=== PATIENT | female | born 1990 | race African-American/Black ===

== ENCOUNTER 2018-04-20 19:12 | Emergency (ER) | payer OTHER ==
[~2018-04-20] VITALS: Ht 170.2 cm; Wt 90.0 kg
[2018-04-20 20:11] VITALS: BP 129/85; PULSE 84; RESP 16; TEMP 98.6; O2SAT 100
[2018-04-20] MEDS ORDERED: METOCLOPRAMIDE HCL 10 MG/2 ML VIAL IV PUSH ONE (21:30)
[2018-04-20] MEDS ORDERED: diphenhydrAMINE HCL 50 MG/ML VIAL IV PUSH ONE (21:30)
[2018-04-20] MEDS ORDERED: SODIUM CHLOR 0.9% 1000 ML INJ 1,000 ML IV ONE (21:30)
[2018-04-20] MEDS ORDERED: KETOROLAC TROMETHAMINE 30 MG/ML (IVP) VIAL IV PUSH ONE (21:30)
--- NOTE | 2018-04-20 21:35 | PD ---
HPI Chief Complaint: Abdominal Pain Time Seen by Provider: 21:19 Travel History International Travel<30 days: No Contact w/Intl Traveler<30days: No Traveled to known affect area: No History of Present Illness HPI 27-year-old black female 2 months presents emergency department we will complains of abdominal pain and associated nausea. She states that the pain came on this morning sometime after 2 AM. She states the pain seems to be localized more in the right upper quadrant but also has some pain in the right lower quadrant. She states the pain is sharp and cramping in nature. States the pain is moderate to severe at times. She states that she has associated nausea but no vomiting. No fever chills. No cough or congestion. No urinary symptoms. No vaginal discharge or abnormal bleeding. She states that she has not had a period since her delivery. Symptoms are exacerbated by movement. She has some improvement with standing and not moving. PFSH Past Medical History Medical History: Denies Significant Hx Tetanus Vaccination: < 5 Years Influenza Vaccination: No ?: Unknown LMP: "JUST HAD A BABY IN JANUARY" : 2 Para: 1 : 1 Past Surgical History Gynecologic Surgery: Yes (CERVIX) Social History Alcohol Use: Yes Tobacco Use: No Substance Use: No Allergies-Medications (Allergen,Severity, Reaction): Coded Allergies: No Known Allergies (Unverified , 04/20/18) Reported Meds & Prescriptions Reported Meds & Active Scripts Active [place] (Hydrocodone-Acetaminophen) 5 Mg-325 Mg Tab 1 Tab PO Q4H PRN Zofran Odt (Ondansetron Odt) 4 Mg Tab 4 Mg SL Q6HR PRN Keflex (Cephalexin) 500 Mg Cap 500 Mg PO Q12H 7 Days Review of Systems General / Constitutional: No: Fever Eyes: No: Visual changes HENT: No: Headaches Cardiovascular: No: Chest Pain or Discomfort Respiratory: No: Shortness of Breath Gastrointestinal: Positive: Nausea, Abdominal Pain, No: Vomiting Genitourinary: No: Dysuria, Hematuria Musculoskeletal: No: Pain Skin: No Rash Neurologic: No: Weakness Psychiatric: No: Depression Endocrine: No: Polydipsia Hematologic/Lymphatic: No: Easy Bruising Physical Exam Narrative GENERAL: Well-developed, well-nourished in no apparent distress. Nontoxic appearing. HEAD: Normocephalic, atraumatic. EYES: Pupils equal round and reactive. Extraocular motions intact. No scleral icterus. No injection or drainage. ENT: Nose clear. Throat without erythema, tonsillar hypertrophy or exudate. Uvula midline. Airway patent. NECK: Trachea midline. Supple, nontender, moves head freely. No central bony tenderness or spasm. CARDIOVASCULAR: Regular rate and rhythm without murmurs, gallops, or rubs. RESPIRATORY: Clear to auscultation. Breath sounds equal bilaterally. No wheezes , rales, or rhonchi. GASTROINTESTINAL: Abdomen soft, tender right upper quadrant to deep palpation with positive Tapia sign. She also has some mild right lower quadrant discomfort to deep palpation, nondistended. No hepato-splenomegaly, or palpable masses. No CVA tenderness. EXTREMITIES: No clubbing, cyanosis, or edema. No joint tenderness. BACK: Nontender without deformity. No flank tenderness. NEUROLOGICAL: Awake, alert and oriented x 3 .Cranial nerves grossly intact. Motor and sensory grossly within normal limits. Normal speech. Data Data Last Documented VS Vital Signs Date Time Temp Pulse Resp B/P (MAP) Pulse Ox O2 Delivery O2 Flow Rate FiO2 04/20/18 21:52 20 04/20/18 20:11 98.6 84 129/85 (100) 100 Orders Orders Complete Blood Count With Diff (04/20/18 21:30) Comprehensive Metabolic Panel (04/20/18 21:30) Lipase (04/20/18 21:30) Urinalysis - C+S If Indicated (04/20/18 21:30) Iv Access Insert/Monitor (04/20/18 21:30) Ed Urine Pregnancytest Poc (04/20/18 21:30) Sodium Chlor 0.9% 1000 Ml Inj (Ns 1000 M (04/20/18 21:30) Diphenhydramine Inj (Benadryl Inj) (04/20/18 21:30) Metoclopramide Inj (Reglan Inj) (04/20/18 21:30) Ketorolac Inj (Toradol Inj) (04/20/18 21:30) Us Abdomen Gallbladder (04/20/18 21:30) Urine Culture (04/20/18 21:31) Ceftriaxone Inj (Rocephin Inj) (04/21/18 00:00) Ct Abd/Pel W Iv Contrast(Rout) (04/21/18 23:48) Iohexol 350 Inj (Omnipaque 350 Inj) (04/21/18 00:46) Ed Discharge Order (04/21/18 01:22) Labs Laboratory Tests Test 04/20/18 21:31 04/20/18 21:35 Urine Color YELLOW Urine Turbidity HAZY Urine pH 6.0 Urine Specific [place] 1.020 Urine Protein NEG mg/dL Urine Glucose (UA) NEG mg/dL Urine Ketones NEG mg/dL Urine Occult Blood NEG Urine Nitrite NEG Urine Bilirubin NEG Urine Urobilinogen 2.0 mg/dL Urine Leukocyte Esterase SMALL Urine RBC 1 /hpf Urine WBC 18 /hpf Urine Squamous Epithelial Cells 5 /hpf Urine Bacteria OCC /hpf Urine Mucus FEW /lpf Microscopic Urinalysis Comment CULTURE INDICATED White Blood Count 12.1 TH/MM3 Red Blood Count 4.14 MIL/MM3 Hemoglobin 12.1 GM/DL Hematocrit 36.8 % Mean Corpuscular Volume 88.8 FL Mean Corpuscular Hemoglobin 29.2 PG Mean Corpuscular Hemoglobin Concent 32.8 % Red Cell Distribution Width 12.3 % Platelet Count 237 TH/MM3 Mean Platelet Volume 9.8 FL Neutrophils (%) (Auto) 78.2 % Lymphocytes (%) (Auto) 11.0 % Monocytes (%) (Auto) 9.5 % Eosinophils (%) (Auto) 0.9 % Basophils (%) (Auto) 0.4 % Neutrophils # (Auto) 9.5 TH/MM3 Lymphocytes # (Auto) 1.3 TH/MM3 Monocytes # (Auto) 1.1 TH/MM3 Eosinophils # (Auto) 0.1 TH/MM3 Basophils # (Auto) 0.1 TH/MM3 CBC Comment DIFF FINAL Differential Comment Blood Urea Nitrogen 11 MG/DL Creatinine 1.18 MG/DL Random Glucose 83 MG/DL Total Protein 8.0 GM/DL Albumin 3.7 GM/DL Calcium Level 8.6 MG/DL Alkaline Phosphatase 95 U/L Aspartate Amino Transf (AST/SGOT) 19 U/L Alanine Aminotransferase (ALT/SGPT) 16 U/L Total Bilirubin 0.7 MG/DL Sodium Level 140 MEQ/L Potassium Level 4.1 MEQ/L Chloride Level 106 MEQ/L Carbon Dioxide Level 24.1 MEQ/L Anion Gap 10 MEQ/L Estimat Glomerular Filtration Rate 68 ML/MIN Lipase 128 U/L [facility] Medical Decision Making Medical Screen Exam Complete: Yes Emergency Medical Condition: Yes Medical Record Reviewed: Yes Interpretation(s) Last 24 hours Impressions Abdomen/Pelvis CT 04/21/18 2348 Signed Impressions: CONCLUSION: 1. Is the right ureteral calculus at the level of the ureterovesicular junctio n measuring 1 mm with mild hydronephrosis. 2. Right renal cysts. 3. Normal appendix. Gall Bladder Ultrasound 04/20/18 2130 Signed Impressions: CONCLUSION: 1. Unremarkable gallbladder with no evidence of colon diastasis. 2. Mild dilatation of the right renal pelvis without definite evidence of hydr onephrosis. The kidney appears mildly increased in echogenicity Laboratory Tests Test 04/20/18 21:31 04/20/18 21:35 Urine Color YELLOW Urine Turbidity HAZY Urine pH 6.0 Urine Specific [place] 1.020 Urine Protein NEG mg/dL Urine Glucose (UA) NEG mg/dL Urine Ketones NEG mg/dL Urine Occult Blood NEG Urine Nitrite NEG Urine Bilirubin NEG Urine Urobilinogen 2.0 mg/dL Urine Leukocyte Esterase SMALL Urine RBC 1 /hpf Urine WBC 18 /hpf Urine Squamous Epithelial Cells 5 /hpf Urine Bacteria OCC /hpf Urine Mucus FEW /lpf Microscopic Urinalysis Comment CULTURE INDICATED White Blood Count 12.1 TH/MM3 Red Blood Count 4.14 MIL/MM3 Hemoglobin 12.1 GM/DL Hematocrit 36.8 % Mean Corpuscular Volume 88.8 FL Mean Corpuscular Hemoglobin 29.2 PG Mean Corpuscular Hemoglobin Concent 32.8 % Red Cell Distribution Width 12.3 % Platelet Count 237 TH/MM3 Mean Platelet Volume 9.8 FL Neutrophils (%) (Auto) 78.2 % Lymphocytes (%) (Auto) 11.0 % Monocytes (%) (Auto) 9.5 % Eosinophils (%) (Auto) 0.9 % Basophils (%) (Auto) 0.4 % Neutrophils # (Auto) 9.5 TH/MM3 Lymphocytes # (Auto) 1.3 TH/MM3 Monocytes # (Auto) 1.1 TH/MM3 Eosinophils # (Auto) 0.1 TH/MM3 Basophils # (Auto) 0.1 TH/MM3 CBC Comment DIFF FINAL Differential Comment Blood Urea Nitrogen 11 MG/DL Creatinine 1.18 MG/DL Random Glucose 83 MG/DL Total Protein 8.0 GM/DL Albumin 3.7 GM/DL Calcium Level 8.6 MG/DL Alkaline Phosphatase 95 U/L Aspartate Amino Transf (AST/SGOT) 19 U/L Alanine Aminotransferase (ALT/SGPT) 16 U/L Total Bilirubin 0.7 MG/DL Sodium Level 140 MEQ/L Potassium Level 4.1 MEQ/L Chloride Level 106 MEQ/L Carbon Dioxide Level 24.1 MEQ/L Anion Gap 10 MEQ/L Estimat Glomerular Filtration Rate 68 ML/MIN Lipase 128 U/L Last 24 hours Impressions Gall Bladder Ultrasound 04/20/180 Signed Impressions: CONCLUSION: 1. Unremarkable gallbladder with no evidence of colon diastasis. 2. Mild dilatation of the right renal pelvis without definite evidence of hydr onephrosis. The kidney appears mildly increased in echogenicity CBC & BMP Diagram 04/20/18 21:35 Total Protein 8.0, Albumin 3.7, Calcium Level 8.6, Alkaline Phosphatase 95, Aspartate Amino Transf (AST/SGOT) 19, Alanine Aminotransferase (ALT/SGPT) 16, Total Bilirubin 0.7 Differential Diagnosis Differential diagnosis: Nonspecific abdominal pain, gastritis, cholecystitis, appendicitis, colitis, pyelonephritis, UTI Narrative Course IV access is obtained. Patient is given liter bolus normal saline. 30 mg of Toradol IV, Benadryl 50 mg IV, Reglan 10 mg IV. Routine laboratory tests including CBC, chemistry, lipase, ultrasound the gallbladder and urinalysis. Ultrasound the gallbladder is unremarkable except for some mild dilatation of the right renal pelvis without obvious Jackson. The patient has had improvement of her discomfort but still has some mild discomfort in the lower right abdomen. We will obtain a CT scan of the abdomen pelvis to rule out appendicitis. The patient is also given 1 g of Rocephin IV. CAT scan of the abdomen and pelvis reveals a normal appendix. She does have a 1 mm stone at the UVJ. Patient has mild hydro-. I suspect the patient will do fine at home. She will be given medicine for nausea and pain. Patient will be given urine strainer and advised to follow-up with urology. This is right ureterolithiasis, UTI Diagnosis Primary Impression: Ureterolithiasis Additional Impression: UTI Patient Instructions: General Instructions Additional Instructions: Rest. Force fluids. Strain all urine. Keflex. Follow-up with your primary care doctor in 1 week. Follow-up with urology in 1 week. Med/Other Pt SpecificInfo: Prescription(s) given Scripts Hydrocodone-Acetaminophen ([place]) 5 Mg-325 Mg Tab 1 TAB PO Q4H Y for PAIN, #10 TAB 0 Refills Prov: Marilu Liriano MD 04/21/18 Ondansetron Odt (Zofran Odt) 4 Mg Tab 4 MG SL Q6HR Y for Nausea/Vomiting, #6 TAB 0 Refills Prov: Marilu Liriano MD 04/21/18 Cephalexin (Keflex) 500 Mg Cap 500 MG PO Q12H for Infection for 7 Days, #14 CAP 0 Refills Prov: Marilu Liriano MD 04/21/18 Disposition: 01 DISCHARGE HOME Condition: Stable Clark Bustos Apr 20, 2018 21:35
[2018-04-20 21:59] LABS: AUTOMATED NEUTROPHIL # 9.5 TH/MM3 (1.8-7.7); BASOPHIL # 0.1 TH/MM3 (0-0.2); BASOPHIL % 0.4 % (0.0-2.0); EOSINOPHIL # 0.1 TH/MM3 (0-0.4); EOSINOPHIL % 0.9 % (0.0-4.0); HEMATOCRIT 36.8 % (35.0-46.0); HEMOGLOBIN 12.1 GM/DL (11.6-15.3); LYMPHOCYTE # 1.3 TH/MM3 (1.0-4.8); MEAN CELL VOLUME 88.8 FL (80.0-100.0); MEAN CORPUSCULAR HEMOGLOBIN 29.2 PG (27.0-34.0); MEAN CORPUSCULAR HGB CONC 32.8 % (32.0-36.0); MEAN PLATELET VOLUME 9.8 FL (7.0-11.0); MONO % 9.5 % (0.0-8.0); MONOCYTE # 1.1 TH/MM3 (0-0.9); NEUT % 78.2 % (16.0-70.0); PLATELET COUNT 237 TH/MM3 (150-450); RED BLOOD COUNT 4.14 MIL/MM3 (4.00-5.30); RED CELL DISTRIBUTION WIDTH 12.3 % (11.6-17.2); WHITE BLOOD COUNT 12.1 TH/MM3 (4.0-11.0)
[2018-04-20 22:18] LABS: BACTERIA, URINE OCC /hpf; BILIRUBIN, URINE NEG (NEG); BLOOD, URINE NEG (NEG); GLUCOSE,URINE NEG (NEG); KETONE, URINE NEG (NEG); MUCUS URINE FEW /lpf (OCC); NITRITE,URINE NEG (NEG); SQUAMOUS EPITHELIAL CELL URINE 5 /hpf (0-5); URINE COLOR YELLOW (YELLW/STRAW); URINE LEUKOCYTE ESTERASE SMALL (NEG)
[2018-04-20 22:30] LABS: ALBUMIN 3.7 GM/DL (3.4-5.0); AST (GOT) 19 U/L (15-37); BICARBONATE 24.1 MEQ/L (21.0-32.0); BLOOD UREA NITROGEN 11 MG/DL (7-18); CALCIUM 8.6 MG/DL (8.5-10.1); CHLORIDE 106 MEQ/L (98-107); CREATININE 1.18 MG/DL (0.50-1.00); GLOMERULAR FILTRATION RATE 68 ML/MIN (>89); GLUCOSE,RANDOM 83 MG/DL (74-106); SODIUM (NA) 140 MEQ/L (136-145)
[2018-04-20 22:34] LABS: ALKALINE PHOSPHATASE 95 U/L (45-117); ALT (GPT) 16 U/L (10-53); TOTAL BILIRUBIN ADULT 0.7 MG/DL (0.2-1.0)
--- NOTE | 2018-04-20 23:42 | RADRPT ---
EXAM DATE: 04/20/2018 11:30 PM EDT AGE/SEX: 27 years / Female INDICATIONS: RUQ pain. CLINICAL DATA: This is the patient's initial encounter. Patient reports that signs and/or symptoms h ave been present for 1 day and indicates a pain score of 1/10. MEDICAL/SURGICAL HISTORY: . . . . Cervix surgery. COMPARISON: No prior exams available for comparison. MEASUREMENTS: Liver:__ 16.5 cm. Common Bile Duct:__ 2mm. FINDINGS: Liver: Increased echotexture without focal lesion or ductal dilation. Portal Vein: Hepatopedal flow seen in portal vein. Common Duct: No intraluminal mass or stone visualized. Gallbladder: Demonstrates no wall thickening or pericholecystic fluid. No stones visualized. Pancreas: The visualized portions are within normal limits Right Kidney: The right kidney is normal in size and shape but appears isoechoic to the liver. There is mild dilatation of the renal pelvis measuring up to 7 mm. There are echogenic areas in central re nal pelvis. Other: None. CONCLUSION: 1. Unremarkable gallbladder with no evidence of colon diastasis. 2. Mild dilatation of the right renal pelvis without definite evidence of hydronephrosis. The kidney appears mildly increased in echogenicity Electronically signed by: Joselito Almaraz MD 04/20/2018 11:40 PM EDT
[2018-04-21] MEDS ORDERED: cefTRIAXone INJ 1,000 MG in SODIUM CHLORIDE 0.9% INJ 100 ML IV ONE ×2
[2018-04-21] MEDS ORDERED: IOHEXOL 350 MG/ML 10 ML VIAL (for RAD DIAG) IVCONTRAST ONE (00:46)
--- NOTE | 2018-04-21 01:06 | RADRPT ---
EXAM DATE: 04/21/2018 12:48 AM EDT AGE/SEX: 27 years / Female INDICATIONS: Right lower quadrant pain; rule out appendicitis. CLINICAL DATA: This is the patient's initial encounter. Patient reports that signs and symptoms have been present for 1 day and indicates a pain score of 7/10. MEDICAL/SURGICAL HISTORY: None. None. ORAL CONTRAST: No oral contrast ingested. RADIATION DOSE: 7.64 CTDI (mGy) COMPARISON: No prior exams available for comparison. TECHNIQUE: Multiple contiguous axial images were obtained through the abdomen and pelvis following b olus infusion of 95 ml Omnipaque 350 (iohexol) nonionic water-soluble contrast as a single exam dos e. No oral contrast ingested. Using automated exposure control and adjustment of the mA and/or kV ac cording to patient size, radiation dose was kept as low as reasonably achievable to obtain optimal di agnostic quality images. DICOM format image data is available electronically for review and comparis on. FINDINGS: Lower Lungs: The visualized lower lungs are clear. Liver: The liver has a homogeneous density without space-occupying lesion. There is no dilation of th e biliary tree. Spleen: Homogeneous density without enlargement. Pancreas: Unremarkable without mass or calcification. Kidneys: Normal in size and shape. No evidence of a solid mass. There are simple cysts in the right kidney. There is a 1 mm distal right ureteral calculus projected at the level of the ureterovesicular junction. There is mild right hydronephrosis and dilatation of the right ureter. Adrenal Glands: Unremarkable. Aorta: The aorta and proximal iliac vessels are grossly unremarkable without aneurysmal dilation. Bowel/Mesentery: No oral contrast was given limiting the sensitivity of the exam. The bowel loops are grossly unremarkable. The cecum and sigmoid colon have a normal configuration. There is an apparent normal appendix. Abdominal Wall: Intact. Retroperitoneum: No evidence of adenopathy in the retrocrural, para-aortic, or deep pelvic regions. Bladder: Contours are smooth. Reproductive Organs: No abnormal masses or calcifications seen. Inguinal: The inguinal region is unremarkable without evidence of adenopathy. Bony Structures: Unremarkable. CONCLUSION: 1. Is the right ureteral calculus at the level of the ureterovesicular junction measuring 1 mm with mild hydronephrosis. 2. Right renal cysts. 3. Normal appendix. Electronically signed by: Joselito Almaraz MD 04/21/2018 1:05 AM EDT
[2018-04-21] MEDS ORDERED: NORC5TAB PO (01:21)
[2018-04-21] MEDS ORDERED: ZOFR4TAB3 SL (01:21)
[2018-04-21] MEDS ORDERED: CEPH-460 PO (01:21)
--- NOTE | 2018-04-21 20:20 | PD ---
Data Data Last Documented VS Vital Signs Date Time Temp Pulse Resp B/P (MAP) Pulse Ox O2 Delivery O2 Flow Rate FiO2 04/20/18 21:52 20 04/20/18 20:11 98.6 84 129/85 (100) 100 Orders Orders Complete Blood Count With Diff (04/20/18 21:30) Comprehensive Metabolic Panel (04/20/18 21:30) Lipase (04/20/18 21:30) Urinalysis - C+S If Indicated (04/20/18 21:30) Iv Access Insert/Monitor (04/20/18 21:30) Ed Urine Pregnancytest Poc (04/20/18 21:30) Sodium Chlor 0.9% 1000 Ml Inj (Ns 1000 M (04/20/18 21:30) Diphenhydramine Inj (Benadryl Inj) (04/20/18 21:30) Metoclopramide Inj (Reglan Inj) (04/20/18 21:30) Ketorolac Inj (Toradol Inj) (04/20/18 21:30) Us Abdomen Gallbladder (04/20/18 21:30) Urine Culture (04/20/18 21:31) Ceftriaxone Inj (Rocephin Inj) (04/21/18 00:00) Ct Abd/Pel W Iv Contrast(Rout) (04/21/18 23:48) Iohexol 350 Inj (Omnipaque 350 Inj) (04/21/18 00:46) Ed Discharge Order (04/21/18 01:22) Labs Laboratory Tests Test 04/20/18 21:31 04/20/18 21:35 Urine Color YELLOW Urine Turbidity HAZY Urine pH 6.0 Urine Specific [place] 1.020 Urine Protein NEG mg/dL Urine Glucose (UA) NEG mg/dL Urine Ketones NEG mg/dL Urine Occult Blood NEG Urine Nitrite NEG Urine Bilirubin NEG Urine Urobilinogen 2.0 mg/dL Urine Leukocyte Esterase SMALL Urine RBC 1 /hpf Urine WBC 18 /hpf Urine Squamous Epithelial Cells 5 /hpf Urine Bacteria OCC /hpf Urine Mucus FEW /lpf Microscopic Urinalysis Comment CULTURE INDICATED White Blood Count 12.1 TH/MM3 Red Blood Count 4.14 MIL/MM3 Hemoglobin 12.1 GM/DL Hematocrit 36.8 % Mean Corpuscular Volume 88.8 FL Mean Corpuscular Hemoglobin 29.2 PG Mean Corpuscular Hemoglobin Concent 32.8 % Red Cell Distribution Width 12.3 % Platelet Count 237 TH/MM3 Mean Platelet Volume 9.8 FL Neutrophils (%) (Auto) 78.2 % Lymphocytes (%) (Auto) 11.0 % Monocytes (%) (Auto) 9.5 % Eosinophils (%) (Auto) 0.9 % Basophils (%) (Auto) 0.4 % Neutrophils # (Auto) 9.5 TH/MM3 Lymphocytes # (Auto) 1.3 TH/MM3 Monocytes # (Auto) 1.1 TH/MM3 Eosinophils # (Auto) 0.1 TH/MM3 Basophils # (Auto) 0.1 TH/MM3 CBC Comment DIFF FINAL Differential Comment Blood Urea Nitrogen 11 MG/DL Creatinine 1.18 MG/DL Random Glucose 83 MG/DL Total Protein 8.0 GM/DL Albumin 3.7 GM/DL Calcium Level 8.6 MG/DL Alkaline Phosphatase 95 U/L Aspartate Amino Transf (AST/SGOT) 19 U/L Alanine Aminotransferase (ALT/SGPT) 16 U/L Total Bilirubin 0.7 MG/DL Sodium Level 140 MEQ/L Potassium Level 4.1 MEQ/L Chloride Level 106 MEQ/L Carbon Dioxide Level 24.1 MEQ/L Anion Gap 10 MEQ/L Estimat Glomerular Filtration Rate 68 ML/MIN Lipase 128 U/L MDM Supervised Visit with ANNI: Yes Narrative Course The history, exam, and medical decision-making in the associated midlevel provider note were completed with my assistance. I reviewed and agree with the findings presented. I attest that I had a [id number] encounter with the patient on the same day, and personally performed and documented my assessment and findings in the medical record. *My assessment and Findings: This is a 27-year-old female who presents to the emergency department with right-sided abdominal pain. She is uncomfortable appearing and tender on exam. Labs are unremarkable except for a leukocytosis of 12. CT abdomen pelvis confirms a 1 mm kidney stone on the right side. Patient appears much better after IV fluids and pain control. She will be discharged home. Diagnosis Primary Impression: Ureterolithiasis Additional Impression: UTI Patient Instructions: General Instructions Departure Forms: Tests/Procedures Additional Instruction: Rest. Force fluids. Strain all urine. Keflex. Follow-up with your primary care doctor in 1 week. Follow-up with urology in 1 week. Scripts Hydrocodone-Acetaminophen ([place]) 5 Mg-325 Mg Tab 1 TAB PO Q4H Y for PAIN, #10 TAB 0 Refills Prov: Marilu Liriano MD 04/21/18 Ondansetron Odt (Zofran Odt) 4 Mg Tab 4 MG SL Q6HR Y for Nausea/Vomiting, #6 TAB 0 Refills Prov: Marilu Liriano MD 04/21/18 Cephalexin (Keflex) 500 Mg Cap 500 MG PO Q12H for Infection for 7 Days, #14 CAP 0 Refills Prov: Marilu Liriano MD 04/21/18 Disposition: 01 DISCHARGE HOME Condition: Stable Marilu Liriano MD Apr 21, 2018 20:20
== END 2018-04-21 01:34 | disposition home or self-care (01) ==
LOC: NEPD 19:12
DX: N13.2 Hydronephrosis with renal and ureteral calculous obstruction (principal); N39.0 Urinary tract infection, site not specified; N28.1 Cyst of kidney, acquired
CPT/HCPCS: 74177; 76705; 80053; 81001; 83690; 84703; 85025; 87086; 96361; 96374; 96375; 99285; J0696; J1200; J1885; J2765; J7030; Q9967